=== PATIENT | male | born 1955 | race Caucasian/White ===

== ENCOUNTER → 2021-06-20 | Outpatient (CLI) | payer MEDICARE ==
--- NOTE | 2021-06-20 13:15 | KCIC ---
PQRS Compliance Statement: One or more of the following individualized dose reduction techniques were utilized for this examinat ion: 1. Automated exposure control 2. Adjustment of the mA and/or kV according to patient size 3. Use of iterative reconstruction technique CT LOW DOSE LUNG SCREEN 06/20/2021 9:20 AM Indication: Smoker for 44 years. Quit one year ago. COMPARISON: None available. TECHNIQUE: Multiple axial CT images of the chest were obtained without intravenous contrast utilizing low-dose technique. Coronal sagittal reformats are provided. FINDINGS: There is a 3.5 mm solid noncalcified pulmonary nodule in the left upper lobe (series 6, image 55). Th ere is mild/moderate centrilobular pulmonary emphysema. No pleural effusions, pulmonary vascular viviana estion or pneumothorax. Bronchial wall thickening compatible with nonspecific bronchitis. Thyroid gla nd is normal in appearance. Heart size within normal limits. Three-vessel coronary vascular calcifica tions are present. 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 No pathol ogically enlarged thoracic lymph nodes. Limited evaluation the upper abdomen due to technique. No serena picious osseous abnormality is identified. IMPRESSION: 1. Solid noncalcified pulmonary nodule measures 3.5 mm in the left upper lobe. Lung RADS category 2, benign appearance or behavior. Recommend low-dose chest CT in one year. 2. Mild to moderate centrilobular pulmonary emphysema. 3. 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 Electronically signed by: Alisson Cline MD (06/20/2021 1:13 PM) [id number]
== END ==
LOC: KCIC CT 09:15
PROVIDERS: ATTEND Family Medicine
DX: R91.1 Solitary pulmonary nodule (principal); I77.810 Thoracic aortic ectasia; I25.10 Atherosclerotic heart disease of native coronary artery without angina pectoris; F17.210 Nicotine dependence, cigarettes, uncomplicated
CPT/HCPCS: 71271